=== PATIENT | female | born 1995 | race Hispanic/Latino ===

== ENCOUNTER → 2017-11-02 | Outpatient (CLI) | payer OTHER ==
[~2017-11-02] MED LIST: GADOBENATE DIMEGLUMINE 10 ML IV ONE; GADOBENATE DIMEGLUMINE 20 ML IV ONE
== END | disposition home or self-care (01) ==
LOC: RAH 12:40 → EEVIPCON 12:40
PROVIDERS: ATTEND Internal Medicine
DX: E22.1 Hyperprolactinemia (principal); N64.3 Galactorrhea not associated with childbirth; N91.1 Secondary amenorrhea
CPT/HCPCS: 70553; A9577